=== PATIENT | male | born 1975 | race Native Hawaiian/Other Pacific Islander ===

== ENCOUNTER 2017-05-11 18:20 | Emergency (ER) | payer OTHER ==
[~2017-05-11] VITALS: Ht 172.7 cm; Wt 87.1 kg
[2017-05-11 19:57] VITALS: BP 140/84; TEMP 98
== END 2017-05-11 19:57 | disposition home or self-care (01) ==
LOC: ED 18:20
DX: L03.113 Cellulitis of right upper limb (principal)
CPT/HCPCS: 99282

== ENCOUNTER 2018-06-14 16:57 | Outpatient (CLI) | payer OTHER ==
[2018-06-15] MEDS ORDERED: DIVALPROEX500 M1 PO (15:16)
[2018-06-15] MEDS ORDERED: OXCARBAZEPIN600 MG PO (15:17)
[2018-06-15] MEDS ORDERED: CLON1TAB18 PO (15:21)
[2018-06-15] MEDS ORDERED: RANI150T78 PO (15:23)
[2018-06-15] MEDS ORDERED: SIMV20TA2 PO ×2 (15:23→15:30)
[2018-06-15] MEDS ORDERED: RISP1TAB PO (15:28)
[2018-06-15] MEDS ORDERED: METF500T PO (15:29)
== END 2018-06-14 17:06 | disposition short-term general hospital (02) ==
LOC: AMB 16:57
DX: R50.9 Fever, unspecified (principal)
CPT/HCPCS: A0425; A0427

== ENCOUNTER 2018-06-14 17:07 | Inpatient (IN) | payer OTHER ==
[~2018-06-14] VITALS: Ht 167.6 cm; Wt 75.4 kg
[2018-06-14 17:07] VITALS: BP 117/70; TEMP 102.7
[2018-06-14 18:01] LABS: PLATELET COUNT 266 K/uL (142-355)
[2018-06-14 18:09] LABS: POTASSIUM 3.8 mmol/L (3.6-5.2)
[2018-06-14 18:45] VITALS: TEMP 101.3
[2018-06-14 22:59] VITALS: BP 102/67; TEMP 101.3; Ht 167.6 cm; Wt 75.4 kg
[2018-06-15] VITALS (8 sets, daily range): BP systolic 88–119; BP diastolic 54–83; TEMP 98–102.4
[2018-06-15] MEDS ORDERED: DIVALPROEX500 M1 PO (15:16)
[2018-06-15] MEDS ORDERED: OXCARBAZEPIN600 MG PO (15:17)
[2018-06-15] MEDS ORDERED: CLON1TAB18 PO (15:21)
[2018-06-15] MEDS ORDERED: RANI150T78 PO (15:23)
[2018-06-15] MEDS ORDERED: SIMV20TA2 PO ×2 (15:23→15:30)
[2018-06-15] MEDS ORDERED: RISP1TAB PO (15:28)
[2018-06-15] MEDS ORDERED: METF500T PO (15:29)
[2018-06-16 03:59] VITALS: BP 101/69; TEMP 97.8
[2018-06-16 06:54] LABS: PLATELET COUNT 207 K/uL (142-355)
[2018-06-16 07:04] LABS: POTASSIUM 3.4 mmol/L (3.6-5.2)
[2018-06-16 08:06] VITALS: BP 116/79; TEMP 97.8
[2018-06-16 12:07] VITALS: BP 113/78; TEMP 98
[2018-06-16 16:05] VITALS: BP 112/78; TEMP 98
[2018-06-16 20:02] VITALS: BP 130/88; TEMP 98.4
[2018-06-17 00:06] VITALS: BP 111/71; TEMP 100
[2018-06-17 04:20] VITALS: BP 125/76; TEMP 97
[2018-06-17 05:07] LABS: PLATELET COUNT 215 K/uL (142-355)
[2018-06-17 05:23] LABS: POTASSIUM 3.7 mmol/L (3.6-5.2)
[2018-06-17 08:00] VITALS: BP 131/88; TEMP 98.3
[2018-06-17 12:03] VITALS: BP 125/88; TEMP 98.6
== END 2018-06-17 15:40 | disposition home or self-care (01) | DRG 872 ==
LOC: ED 17:15 → MED/SURG 19:00
PROVIDERS: Emergency Medicine
DX: A41.89 Other specified sepsis (principal); E87.2 Acidosis; R51 Headache; E11.9 Type 2 diabetes mellitus without complications; G40.802 Other epilepsy, not intractable, without status epilepticus; R10.9 Unspecified abdominal pain
CPT/HCPCS: 36415; 36600; 80053; 81000; 82150; 82805; 82948; 83605; 83690; 85027; 87040; 87081; 87880; 94760; 96361; 96365; 96366; 96367; 99284; J0696; J2543; J3490; Q9963